=== PATIENT | female | born 1990 | race Caucasian/White ===

== ENCOUNTER 2022-06-07 18:28 | Emergency (ER) | payer BC ==
[~2022-06-07] VITALS: Ht 165.1 cm; Wt 63.5 kg
[2022-06-07 18:28] VITALS: BP_SYST 135
--- NOTE | 2022-06-07 18:28 | NUR ---
Patient triaged and placed in waiting room. VSS and patient appears in no acute distress at this time. Accompanied by SELF, awaiting available bed, and MD notified of need for MSE.
--- NOTE | 2022-06-07 18:35 | NUR ---
DR VERDUGO TO TRIAGE ROOM FOR EVALUATION
--- NOTE | 2022-06-07 18:42 | NUR ---
PT STATES SHE FELL ABOUT 1 WEEK AGO HITTING FOREHEAD ON COUNTER, SHE HAS HAD A HEADACHE SINCE. STATES SHE HAS A SOFT SPOT IN THE FOREHEAD WHERE SHE HIT HEAD. PT STATES NO K.O
[2022-06-07] MEDS ORDERED: NAPR-1172 PO (20:19)
--- NOTE | 2022-06-07 20:20 | NUR ---
Patient given written and verbal discharge instructions and verbalizes understanding. ER MD Smyth discussed with patient the results and treatment provided. Patient in stable condition. ID arm band removed. Patient educated on pain management and to follow up with PMD. Opportunity for questions provided and answered. Medication side effect fact sheet provided.
[2022-06-07 20:50] VITALS: BP_SYST 129
== END 2022-06-07 20:50 | disposition home or self-care (01) ==
LOC: SED 18:28
DX: S09.90XA Unspecified injury of head, initial encounter (principal); H53.8 Other visual disturbances; Z79.899 Other long term (current) drug therapy; W22.8XXA Striking against or struck by other objects, initial encounter; Y93.89 Activity, other specified; Y92.89 Other specified places as the place of occurrence of the external cause; Y99.8 Other external cause status
CPT/HCPCS: 70450-TC; 76376; 81025; 99284